=== PATIENT | male | born 1990 | race African-American/Black ===

== ENCOUNTER 2020-07-16 13:55 | Emergency (ER) | payer OTHER ==
[~2020-07-16] VITALS: Ht 190.5 cm; Wt 104.3 kg
[2020-07-16] MEDS ORDERED: MOBIC7.5 MG PO (15:39)
[2020-07-16] MEDS ORDERED: CYCLOBENZAPRINE5 MG PO (15:39)
[2020-07-16 16:04] VITALS: BP 126/82
== END 2020-07-16 16:04 | disposition home or self-care (01) ==
LOC: ER 13:55
DX: S16.1XXA Strain of muscle, fascia and tendon at neck level, initial encounter (principal); S39.012A Strain of muscle, fascia and tendon of lower back, initial encounter; M25.562 Pain in left knee; M25.561 Pain in right knee; V49.9XXA Car occupant (driver) (passenger) injured in unspecified traffic accident, initial encounter; Y93.89 Activity, other specified; Y92.89 Other specified places as the place of occurrence of the external cause; Y99.8 Other external cause status